=== PATIENT | female | born 1965 | race Two or more races ===

== ENCOUNTER 2024-05-18 18:28 | Emergency (ER) | payer BC, OTHER ==
[~2024-05-18] VITALS: Ht 170.2 cm; Wt 72.7 kg
--- NOTE | 2024-05-18 18:51 | ED.PDOC ---
Sudheer. trauma (HPI) HPI Comments 59 y.o female presents to the ED via EMS for a chief complaint of left ankle pain s/p mechanical fall today. Patient reports tripping over something in her garage about 35 minutes prior to arrival and presents to the ED with positive deformity to left ankle. EMS reports patient refused pain medication on scene and in route. Patient denies any head injuries, LOC, bleeding, dizziness prior to fall or after. Time Seen by MD: 18:30 Reviewed notes: Nurses Notes, Threader Operator Notes, Medications, Allergies Allergies: Coded Allergies: NO KNOWN ALLERGIES (Unverified , 05/18/24) Information Source: Patient, Emergency Med Personnel Mode of Arrival: EMS Severity: Moderate Timing: Minutes Duration: Since onset Prehospital treatment: None Location: (L) Ankle Location of laceration: None Mechanism: Fall Past Medical History PAST MEDICAL HISTORY: Denies Surgical History: Tubal Ligation PROTECTION ANALYST History: No Pertinent PROTECTION ANALYST History Family History Family History: Reviewed,noncontributory to illness Social History Smoker: Non-Smoker Alcohol: Denies ETOH Use Drugs: Denies Drug Use Lives In: Home Constitutional: denies: chills, diaphoresis, fatigue, fever, malaise, sweats, weakness, others EENTM: denies: blurred vision, double vision, ear bleeding, ear discharge, ear drainage, ear pain, ear ringing, eye pain, eye redness, hearing loss, mouth pain, mouth swelling, nasal discharge, nose bleeding, nose congestion, nose pain, photophobia, tearing, throat pain, throat swelling, voice changes, others Respiratory: denies: cough, hemoptysis, orthopnea, SOB at rest, shortness of breath, SOB with excertion, stridor, wheezing, others Cardiovascular: denies: chest pain, dizzy spells, diaphoresis, Dyspnea on exertion, edema, irregular heart beat, left arm pain, lightheadedness, palpitations, PND, syncope, others Gastrointestinal: denies: abdomen distended, abdominal pain, blood streaked bowels, constipated, diarrhea, dysphagia, difficulty swallowing, hematemesis, melena, nausea, poor appetite, poor fluid intake, rectal bleeding, rectal pain, vomiting, others Genitourinary: denies: abnormal vagina bleeding, burning, dyspareunia, dysuria, flank pain, frequency, hematuria, incontinence, pain, , vagina discharge, urgency, others Neurological: denies: dizziness, fainting, headache, left sided numbness, left sided weakness, numbness, paresthesia, pre-existing deficit, right sided numbness, right sided weakness, seizure, speech problems, tingling, tremors, weakness, others Musculoskeletal: reports: others (left ankle pain ); denies: back pain, gout, joint pain, joint swelling, muscle pain, muscle stiffness, neck pain Integumetry: denies: bruises, change in color, change in hair/nails, dryness, laceration, lesions, lumps, rash, wounds, others Allergic/Immunocompromised: denies: Difficulty Healing, Frequent Infections, Hives, Itching, others Hematologic/Lymphatic: denies: anemia, blood clots, easy bleeding, easy bruising, swollen glands, others Endocrine: denies: excessive hunger, excessive sweating, excessive thirst, excessive urination, flushing, intolerance to cold, intolerance to heat, unexplained weight gain, unexplained weight loss, others Psychiatric: denies: anxiety, bipolar disorder, depression, hopeless, panic disorder, schizophrenia, sleepless, suicidal, others All Other Systems: Reviewed and Negative Physical Exam General Appearance: Moderate Distress HEENT: Normal ENT Inspection, Pharynx Normal, TMs Normal Neck: Full Range of Motion, Non-Tender, Normal, Normal Inspection Respiratory: Chest Non-Tender, Lungs Clear, No Accessory Muscle Use, No Respiratory Distress, Normal Breath Sounds Cardiovascular: No Edema, No JVD, No Murmur, No Gallop, Normal Peripheral Pulses, Regular Rate/Rhythm Breast Exam: Deferred Gastrointestinal: No Organomegaly, Non Tender, No Pulsatile Mass, Normal Bowel Sounds, Soft Genitalia: Deferred Pelvic: Deferred Rectal: Deferred Extremities: No calf tenderness, Normal capillary refill, Normal inspection, Normal range of motion, Non-tender, No pedal edema Musculoskeletal : Location: Left Extremity Location: Ankle Apperance: Swelling, Limited ROM, Tenderness: Moderate Neurologic: Alert, 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 Was a procedure done?: No Differential Diagnosis Multiple Trauma: Fractures, Contusion X-Ray, Labs, Meds, VS Vital Signs Date Time Temp Pulse Resp B/P (MAP) Pulse Ox O2 Delivery O2 Flow Rate FiO2 05/18/24 18:47 97.8 69 16 128/70 (89) 98 X-ray of the left ankle shows: IMPRESSION: Oblique fracture through the distal fibular diaphysis with extension into the lateral malleolus. Surgical clips project over the tibiotalar joint. Moderate diffuse soft tissue edema and small ankle joint effusion. At this time, the patient was placed in a posterior and sugar-tong splint to the left ankle The patient will be discharged The patient was given [place] here in the emergency department's The patient was given crutches and gait training The patient will follow up with her primary care doctor for a referral to the orthopedic surgeon. Images Reviewed?: Images reviewed and evaluated by me Time of 1ST Reevaluation: 18:51 Reevaluation 1ST: Unchanged Patient Education/Counseling: Diagnosis, Treatment, Prognosis, Need For Follow Up Family Education/Counseling: No Family Present Departure 1 Departure Time of Disposition: 20:38 Impression: Primary Impression: Closed left ankle fracture Qualified Codes: S82.892A - Other fracture of left lower leg, initial encounter for closed fracture Disposition: 01 HOME / SELF CARE / HOMELESS Condition: Fair Discharged With: Self Critical Care Note Critical Care Time?: No Stability Stability form required: No I personally scribed for AHSAN FERNANDES MD ([email or web address]) on 05/18/24 at 18:51. Electronically submitted by Мария Covington ([facility]). AHSAN FERNANDES MD May 18, 2024 18:51
--- NOTE | 2024-05-18 20:19 | DVH ---
XY L ANKLE 3 VIEW, INDICATION: fall TECHNICAL DATA:Frontal , oblique and lateral views were obtained of the left ankle. COMPARISON: None Findings/ IMPRESSION: Oblique fracture through the distal fibular diaphysis with extension into the lateral malleolus. Surg ical clips project over the tibiotalar joint. Moderate diffuse soft tissue edema and small ankle join t effusion.
[2024-05-18] MEDS: HYDROcodone-ACET 10/325MG TAB PO ONE (20:45)
[2024-05-18 21:30] VITALS: BP 125/83; PULSE 66; RESP 16; TEMP 99.3; O2SAT 96
== END 2024-05-18 21:41 | disposition home or self-care (01) ==
LOC: EDBD 18:28 → ER 18:28
DX: S82.892A Other fracture of left lower leg, initial encounter for closed fracture (principal); Z98.51 Tubal ligation status; W01.0XXA Fall on same level from slipping, tripping and stumbling without subsequent striking against object, initial encounter; Y93.89 Activity, other specified; Y92.89 Other specified places as the place of occurrence of the external cause; Y99.8 Other external cause status
CPT/HCPCS: 29515; 73610